=== PATIENT | male | born 1960 | race Caucasian/White ===

== ENCOUNTER 2019-08-03 09:29 | Outpatient (CLI) | payer BC ==
--- NOTE | 2019-08-03 12:12 | RAD ---
RIGHT FOOT RADIOGRAPHS THREE VIEWS: 08/03/2019 PROVIDED CLINICAL HISTORY: FINDINGS: Right foot pain. FINDINGS: There is no evidence for fracture or other acute osseous abnormality. Alignment appears anatomic. Rosemary int spaces appear preserved. No erosive changes are evident. The soft tissues appear radiographically unremarkable. Small plantar and posterior calcaneal enthesophytes are seen. IMPRESSION: No evidence for an acute osseous abnormality or significant arthropathy. POS: OFF
== END 2019-08-03 09:30 | disposition home or self-care (01) ==
LOC: SCSRAD 09:29
PROVIDERS: ATTEND Nurse Practitioner Family
DX: M10.9 Gout, unspecified (principal)